=== PATIENT | female | born 2000 | race Caucasian/White ===

== ENCOUNTER 2018-12-16 18:43 | Inpatient (IN) | payer SELFPAY ==
[~2018-12-16] VITALS: Ht 315 cm; Wt 44.9 kg
[2018-12-16] MEDS: SODIUM CHLORIDE 0.9% 1,000 ML IV ONE ×2 (20:03→22:19)
[2018-12-16 20:31] LABS: CLARITY URINE CLEAR (CLEAR); COLOR URINE YELLOW (YELLOW); KETONES URINE NEGATIVE (NEGATIVE); LEUKOCYTE ESTERASE URINE NEGATIVE (NEGATIVE); NITRITE URINE NEGATIVE (NEGATIVE); OCCULT BLOOD URINE 1+ (NEGATIVE); PROTEIN URINE NEGATIVE (NEGATIVE); SPECIFIC GRAVITY URINE 1.027 (1.005-1.030)
[2018-12-16 20:58] LABS: *AMPHETAMINES SCREEN URINE NEGATIVE (NEGATIVE); *BARBITURATES SCREEN URINE NEGATIVE (NEGATIVE)
[2018-12-16 20:59] LABS: *BENZODIAZEPINES SCREEN URINE NEGATIVE (NEGATIVE); *COCAINE SCREEN URINE NEGATIVE (NEGATIVE); METHADONE URINE SCREEN NEGATIVE (NEGATIVE); OPIATES URINE SCREEN NEGATIVE (NEGATIVE); PHENCYCLIDINE URINE SCREEN NEGATIVE (NEGATIVE)
[2018-12-16 21:00] LABS: CANNABINOID URINE SCREEN NEGATIVE (NEGATIVE)
[2018-12-16 21:16] LABS: BASOPHILS % 0.5 % (0.0-2.0); EOSINOPHILS % 2.1 % (0.0-5.0); HEMOGLOBIN. 12.3 g/dL (12.0-16.0); LYMPHOCYTES % 20.8 % (20.0-50.0); MEAN CORPUSCULAR HEMOGLOBIN 28.7 pg (28.0-32.0); MEAN CORPUSCULAR VOLUME 86.2 fL (81.0-99.0); MEAN PLATELET VOLUME 7.6 fl (7.4-10.4); MONOCYTES % 5.3 % (2.0-8.0); NEUTROPHILS % 71.3 % (40.0-76.0); PLATELET 303 x1000/uL (130-400); RED BLOOD CELL COUNT 4.29 mill/uL (4.2-5.4); RED CELL DISTRIBUTION WIDTH 13.5 % (11.6-14.6)
[2018-12-16 21:24] LABS: CHLORIDE 107 mEq/L (98-107)
[2018-12-16 21:26] LABS: INR 1.1; PARTIAL THROMBOPLASTIN TIME 30.1 sec (23.4-31.0); PROTHROMBIN TIME 10.9 sec (9.6-11.0)
[2018-12-16 21:34] LABS: B-HCG QUANTITATIVE 431 mIU/mL (<3)
[2018-12-16 23:25] VITALS: BP 104/63
[2018-12-16 23:40] VITALS: BP 104/63
[2018-12-17] MEDS ORDERED: ONDANSETRON HCL 4MG/2ML INJ IV PRN (01:00)
[2018-12-17] MEDS ORDERED: HYDROMORPHONE HCL/PF 2MG/ML CPJ IV PRN (01:00)
[2018-12-17] MEDS: DEXT 5%/0.45% NACL 1000ML 1,000 ML IV SCH ×2 (03:53→10:00)
[2018-12-17 04:00] VITALS: BP 100/66
[2018-12-17 08:00] VITALS: BP 111/67
[2018-12-17] MEDS: ACETAMINOPHEN 325MG TABLET PO PRN (08:42)
[2018-12-17 12:00] VITALS: BP 108/59
[2018-12-17 16:00] VITALS: BP 111/65
[2018-12-17 20:00] VITALS: BP 110/75
[2018-12-17] MEDS ORDERED: DIPHENHYDRAMINE 25MG CAPSULE PO NR (21:00)
[2018-12-18] VITALS: BP 104/63
[2018-12-18] MEDS: DEXT 5%/0.45% NACL 1000ML 1,000 ML IV SCH ×3 (02:07→21:03)
[2018-12-18 04:00] VITALS: BP 104/69
[2018-12-18 08:00] VITALS: BP 114/67
[2018-12-18 12:00] VITALS: BP 110/73
[2018-12-18] MEDS: ACETAMINOPHEN 325MG TABLET PO PRN (13:03)
[2018-12-18 16:00] VITALS: BP 107/66
[2018-12-18 20:00] VITALS: BP 107/62
[2018-12-19 00:30] VITALS: BP 107/71
[2018-12-19 04:00] VITALS: BP 107/68
[2018-12-19 08:00] VITALS: BP 104/58
[2018-12-19 08:25] LABS: BASOPHILS % 0.3 % (0.0-2.0); EOSINOPHILS % 5.2 % (0.0-5.0); HEMATOCRIT. 37.6 % (36.0-48.0); HEMOGLOBIN. 12.4 g/dL (12.0-16.0); LYMPHOCYTES % 15.8 % (20.0-50.0); MEAN CORPUSCULAR HEMOGLOBIN 28.5 pg (28.0-32.0); MEAN CORPUSCULAR VOLUME 86.4 fL (81.0-99.0); MEAN PLATELET VOLUME 7.4 fl (7.4-10.4); MONOCYTES % 8.5 % (2.0-8.0); NEUTROPHILS % 70.2 % (40.0-76.0); PLATELET 270 x1000/uL (130-400); RED BLOOD CELL COUNT 4.35 mill/uL (4.2-5.4); RED CELL DISTRIBUTION WIDTH 13.5 % (11.6-14.6)
[2018-12-19] MEDS: DEXT 5%/0.45% NACL 1000ML 1,000 ML IV SCH (10:04)
[2018-12-19 11:47] VITALS: BP 106/58
[2018-12-19] MEDS: ACETAMINOPHEN 325MG TABLET PO PRN (12:00)
[2018-12-19 15:44] VITALS: BP 115/75
[2018-12-19 16:00] VITALS: BP 96/50
== END 2018-12-19 16:45 | disposition home or self-care (01) | DRG 564 ==
LOC: ER 18:43 → 6EST 21:56 → EDBEDREQ 21:59 → ENRESERV 22:25
PROVIDERS: ADMIT Obstetrics & Gynecology; ATTEND Obstetrics & Gynecology
DX: O03.9 Complete or unspecified spontaneous abortion without complication (principal); Z3A.01 Less than 8 weeks gestation of pregnancy
CPT/HCPCS: 36415; 76801; 80048; 80076; 80305; 81025; 84702; 86850; 86900; 93005; 96360; 99285; J1170; J2405; J7030; Q0163